=== PATIENT | female | born 1935 | race Caucasian/White ===

== ENCOUNTER 2021-09-14 17:04 | Inpatient (IN) ==
[2021-09-15] MEDS ORDERED: *HR* Heparin 5,000 UNIT/ML VIAL IVP PRN ×2 (00:51)
[2021-09-15 00:59] LABS: Heparin anti-factor XA UFH 0.66 IU/mL (0.30-0.70)
[2021-09-15 01:09] LABS: INR 1.2; Prothrombin Time 13.6 Seconds (9.4-12.1)
[2021-09-15 01:12] LABS: Activated Partial Thrombo Time 98.7 Seconds (26.0-36.0)
[2021-09-15 01:20] LABS: Influenza A PCR Negative (Negative); Influenza B PCR Negative (Negative); Resp. Syncytial Virus PCR Negative (Negative)
[2021-09-15 01:23] LABS: SARS-CoV-2 by PCR (In House) Negative (Negative)
[2021-09-15] MEDS ORDERED: Morphine Sulfate 2 MG/ML SYRINGE IVP PRN (02:40)
[2021-09-15] MEDS ORDERED: Nitroglycerin 0.4 MG TAB.SUBL SL PRN (02:41)
[2021-09-15] MEDS ORDERED: Perflutren Lipid Microsphere 1.3 ML in 0.9 % Sodium Chloride 8.7 ML IVP PRN (02:46)
[2021-09-15] MEDS ORDERED: Ondansetron 4 MG/2 ML VIAL IVP PRN (02:48)
[2021-09-15] MEDS ORDERED: Naloxone 0.4 MG/ML INJ IVP PRN (02:48)
[2021-09-15] MEDS: Heparin 25,000UNIT/250ML 1/2NS 25,000 UNIT/250 ML IV.SOLN IVC SCH (02:56)
[2021-09-15] MEDS: 0.9 % Sodium Chloride 1,000 ML IVC SCH ×3 (03:34→23:41)
[2021-09-15 04:18] LABS: Basophils % 0.5 %; Eosinophils % 0.2 %; Hematocrit 42.8 % (35.3-44.9); Hemoglobin 14.2 g/dL (11.5-15.4); Immature Granulocytes % 0.2 % (0-4); Lymphocytes # 1.9 K/mcL (0.6-4.6); Lymphocytes % 30.1 %; Mean Corpuscular HGB Conc 33.2 g/dL (31.6-35.5); Mean Corpuscular Hemoglobin 29.9 pg (28.0-33.3); Mean Corpuscular Volume 90.1 fL (83.0-100.0); Mean Platelet Volume 10.3 fL (9.4-12.4); Monocytes # 0.5 K/mcL (0.0-1.3); Monocytes % 8.2 %; Neutrophils # 3.8 K/mcL (1.6-8.9); Platelet Count 171 K/mcL (140-400); Red Blood Count 4.75 M/mcL (3.82-4.97); Red Cell Distribution Width 13.4 % (11.5-14.5); Segmented Neutrophils % 60.8 %; White Blood Count 6.3 K/mcL (4.3-11.1)
[2021-09-15 04:23] LABS: Estimated Average Glucose 120 mg/dl; Hemoglobin A1C 5.8 %
[2021-09-15 04:50] LABS: % Iron Saturation 8 % (15-50); Alanine Aminotransferase 23 Units/L (7-52); Albumin 3.6 g/dL (3.5-5.7); Albumin/Globulin Ratio 1.3 (1.1-2.2); Alkaline Phosphatase 74 Units/L (34-104); Aspartate Amino Transferase 31 Units/L (13-39); BUN/Creatinine Ratio 19 (6-26); Bilirubin,Total 0.3 mg/dL (0.3-1.0); Blood Urea Nitrogen 11 mg/dL (8-23); Carbon Dioxide 24 mEq/L (23-29); Chloride 105 mEq/L (98-107); Chol/HDL Ratio 3.2 (0-4.9); Cholesterol 117 mg/dL (< 200); Globulin 2.8 g/dL (2.4-3.5); Glucose 109 mg/dL (70-105); HDL Cholesterol 37 mg/dL (40-59); Iron 25 mcg/dL (50-170); LDL Cholesterol,Calculated 47 mg/dL (< 100); Magnesium 1.9 mg/dL (1.6-2.6); Osmolality,Calculated 284 (280-300); Potassium 3.1 mEq/L (3.5-5.1); Sodium 137 mEq/L (136-145); Total Protein 6.4 g/dL (6.4-8.9); Transferrin 216 mg/dL (203-362); Triglycerides 163 mg/dL (< 150); Troponin I 0.16 ng/mL (< 0.04); eGFR For African Americans > 60 (> 60); eGFR For Non-African Americans > 60 (> 60)
[2021-09-15] MEDS ORDERED: Potassium Chloride Elixir 20 MEQ/15 ML UDC PO ONE ×2 (04:51→17:37)
[2021-09-15] MEDS ORDERED: Calcium Gluconate 1gm/50mL 1 GM/50 ML BAG IVPB ONE ×2 (04:52→06:30)
[2021-09-15 05:06] LABS: Ferritin 221 ng/mL (10-120); Thyroid Stimulating Hormone 6.687 mcIU/mL (0.340-5.600)
[2021-09-15 05:10] LABS: Folate > 22.3 ng/mL (3.0-16.0); Vitamin B12 851 pg/mL (250-1100)
[2021-09-15] MEDS: amLODIPine 5 MG TABLET PO SCH (08:56)
[2021-09-15] MEDS: Aspirin Enteric Coated 81 MG Tablet PO SCH (08:56)
[2021-09-15] MEDS ORDERED: cefTRIAXone 1,000 MG in 0.9 % Sodium Chloride 10 ML IVP SCH (17:00)
[2021-09-16 01:59] LABS: Hemoglobin 13.5 g/dL (11.5-15.4); Mean Corpuscular HGB Conc 32.9 g/dL (31.6-35.5); Mean Corpuscular Hemoglobin 30.1 pg (28.0-33.3); Mean Corpuscular Volume 91.5 fL (83.0-100.0); Mean Platelet Volume 10.5 fL (9.4-12.4); Platelet Count 199 K/mcL (140-400); Red Blood Count 4.48 M/mcL (3.82-4.97); Red Cell Distribution Width 13.4 % (11.5-14.5); White Blood Count 6.5 K/mcL (4.3-11.1)
[2021-09-16 02:20] LABS: BUN/Creatinine Ratio 15 (6-26); Blood Urea Nitrogen 8 mg/dL (8-23); Calcium 8.5 mg/dL (8.6-10.3); Carbon Dioxide 23 mEq/L (23-29); Chloride 103 mEq/L (98-107); Glucose 94 mg/dL (70-105); Osmolality,Calculated 278 (280-300); Potassium 3.3 mEq/L (3.5-5.1); Sodium 135 mEq/L (136-145); eGFR For African Americans > 60 (> 60); eGFR For Non-African Americans > 60 (> 60)
[2021-09-16 06:39] VITALS: BP 147/74; PULSE 68; TEMP 97.8; O2SAT 96
[2021-09-16] MEDS: amLODIPine 5 MG TABLET PO SCH (07:45)
[2021-09-16] MEDS: Aspirin Enteric Coated 81 MG Tablet PO SCH (07:45)
[2021-09-16] MEDS: 0.9 % Sodium Chloride 1,000 ML IVC SCH (08:45)
[2021-09-16] MEDS: Heparin 25,000UNIT/250ML 1/2NS 25,000 UNIT/250 ML IV.SOLN IVC SCH (11:27)
== END 2021-09-16 12:54 | disposition home or self-care (01) | DRG 689 ==
LOC: 3BNU → SUATTDRO 22:56
PROVIDERS: ADMIT Pharmacist; ATTEND Internal Medicine